=== PATIENT | female | born 1960 | race Caucasian/White ===

== ENCOUNTER → 2019-01-21 | Outpatient (CLI) | payer OTHER ==
[~2019-01-21] MED LIST: ALBU90OI; BENADRYL; BENADRYL OTC; PRED20 PO; THYROID
== END | disposition home or self-care (01) ==
LOC: LAB 15:46 → LAB SHORT 15:46
DX: N39.0 Urinary tract infection, site not specified (principal)
CPT/HCPCS: 87077; 87086; 87186

== ENCOUNTER 2020-07-29 17:46 | Emergency (ER) | payer OTHER ==
[~2020-07-29] VITALS: Ht 165.1 cm; Wt 90.7 kg
[2020-07-29] MEDS ORDERED: SYNTHROID137 MCG PO (18:40)
[2020-07-29] MEDS ORDERED: LISI20 PO (18:40)
[2020-07-29 19:04] LABS: BASOPHILS ABSOLUTE AUTO 0.07 K/mm3 (0.00-0.23); BASOPHILS PERCENT AUTO 1 % (0-2); EOSINOPHILS ABSOLUTE AUTO 0.27 K/mm3 (0.00-0.68); EOSINOPHILS PERCENT AUTO 3 % (0-6); Hemoglobin 12.8 g/dL (11.5-16.0); IMMATURE GRAN ABSOLUTE AUTO 0.04 K/mm3 (0.00-0.10); IMMATURE GRAN PERCENT AUTO 1 % (0-1); LYMPHOCYTES ABSOLUTE AUTO 1.14 K/mm3 (0.84-5.20); LYMPHOCYTES PERCENT AUTO 13 % (21-46); MONOCYTES ABSOLUTE AUTO 0.55 K/mm3 (0.16-1.47); MONOCYTES PERCENT AUTO 6 % (4-13); Mean Corpuscular HGB 28.4 pg (26.0-34.0); Mean Corpuscular Volume 89 fL (80-100); Mean Platelet Volume 9.4 fL (9.1-12.4); NEUTROPHILS ABSOLUTE AUTO 6.49 K/mm3 (1.96-9.15); NEUTROPHILS PERCENT AUTO 76 % (41-73); Platelet Count 237 K/mm3 (150-400); RDW Coefficient Variation 13.2 % (11.7-14.2); RDW Standard Deviation 43.2 fL (35.1-46.3); Red Blood Cell Count 4.51 M/mm3 (3.80-5.20); White Blood Cell Count 8.56 K/mm3 (4.00-11.30)
[2020-07-29 19:28] LABS: Alanine Aminotransfer (ALT/SGP 18 U/L (12-78); Albumin, Blood 3.6 g/dL (3.4-5.0); Albumin/Globulin Ratio 0.9 (0.8-1.8); Alk Phos 108 U/L (50-136); Anion Gap 7 mmol/L (6-16); Aspartate Aminotrans (AST/SGOT 21 U/L (12-37); Bilirubin, Total 0.4 mg/dL (0.1-1.0); Blood Urea Nitrogen 20 mg/dL (8-24); Bun/Creatinine Ratio 18.5 (12.0-20.0); CO2, Blood 25 mmol/L (21-32); Calcium, Blood 9.1 mg/dL (8.5-10.1); Chloride, Blood 107 mmol/L (98-108); Creatinine, Blood 1.08 mg/dL (0.40-1.00); Globulin, Blood 3.8 g/dL (2.2-4.0); Glomerular Filtration Rate 55 (60-); Glucose, Blood 99 mg/dL (70-99); Potassium, Blood 3.6 mmol/L (3.5-5.5); Sodium, Blood 139 mmol/L (136-145); Total Protein, Blood 7.4 g/dL (6.4-8.2); Troponin I <0.015 ng/mL (0.000-0.040)
== END 2020-07-29 20:40 | disposition home or self-care (01) ==
LOC: ER 17:46
PROVIDERS: Emergency Medicine
DX: R07.9 Chest pain, unspecified (principal); I10 Essential (primary) hypertension; Z79.52 Long term (current) use of systemic steroids; Z79.899 Other long term (current) drug therapy
CPT/HCPCS: 71046; 80053; 83690; 84484; 85025; 93005; 93010; 99284-25

== ENCOUNTER 2021-01-14 13:28 | Day surgery (SDC) | payer OTHER ==
[~2021-01-14] VITALS: Ht 165.1 cm; Wt 98.6 kg
[~2021-01-14 13:28] MED LIST changes: +CLOB.05TO; +DICL75ER PO; +EPIPEN 2-P0.3 MG/0.1; +EUTHYROX125 MCG PO; +LISI20 PO; +OMEP20ER PO; +SYNTHROID137 MCG PO
== END 2021-01-14 15:11 | disposition home or self-care (01) ==
LOC: ORSCSDS 13:28
PROVIDERS: Internal Medicine Gastroenterology
PROC: 0DB58ZX Excision of Esophagus, Via Natural or Artificial Opening Endoscopic, Diagnostic (ICD-10-PCS; principal; 2021-01-14 14:30)
PROC: 0D758ZZ Dilation of Esophagus, Via Natural or Artificial Opening Endoscopic (ICD-10-PCS; principal; 2021-01-14 14:30)
DX: R13.10 Dysphagia, unspecified (principal); I10 Essential (primary) hypertension; K22.2 Esophageal obstruction; K44.9 Diaphragmatic hernia without obstruction or gangrene; K20.80 Other esophagitis without bleeding; Z68.36 Body mass index [BMI] 36.0-36.9, adult; E66.9 Obesity, unspecified; Z79.899 Other long term (current) drug therapy
CPT/HCPCS: 88305; C1726; J2704; J7120

== ENCOUNTER → 2022-05-29 | Outpatient (CLI) | payer OTHER | END | disposition home or self-care (01) | LOC: LAB SHORT 11:06 → LAB 11:06 | DX: C57.4 Malignant neoplasm of uterine adnexa, unspecified (principal); D22.5 Melanocytic nevi of trunk | CPT/HCPCS: 88305 ==

== ENCOUNTER → 2022-06-30 | Outpatient (CLI) | payer OTHER | LOC: LAB SHORT 07:40 → PLD 07:40 | DX: D22.5 Melanocytic nevi of trunk (principal) | CPT/HCPCS: 88305 ==

== ENCOUNTER 2022-07-03 15:12 | Emergency (ER) | payer OTHER ==
[~2022-07-03] VITALS: Ht 165.1 cm; Wt 95.2 kg
[2022-07-03 15:38] LABS: BASOPHILS ABSOLUTE AUTO 0.09 K/mm3 (0.00-0.23); BASOPHILS PERCENT AUTO 1 % (0-2); EOSINOPHILS ABSOLUTE AUTO 0.25 K/mm3 (0.00-0.68); EOSINOPHILS PERCENT AUTO 3 % (0-6); Hematocrit 41.7 % (33.0-51.0); IMMATURE GRAN ABSOLUTE AUTO 0.02 K/mm3 (0.00-0.10); IMMATURE GRAN PERCENT AUTO 0 % (0-1); LYMPHOCYTES ABSOLUTE AUTO 1.84 K/mm3 (0.84-5.20); LYMPHOCYTES PERCENT AUTO 22 % (21-46); MONOCYTES ABSOLUTE AUTO 0.61 K/mm3 (0.16-1.47); MONOCYTES PERCENT AUTO 7 % (4-13); Mean Corpuscular HGB 28.8 pg (26.0-34.0); Mean Corpuscular HGB Conc 33.6 g/dL (31.5-36.5); Mean Corpuscular Volume 86 fL (80-100); Mean Platelet Volume 9.5 fL (9.1-12.4); NEUTROPHILS ABSOLUTE AUTO 5.76 K/mm3 (1.96-9.15); NEUTROPHILS PERCENT AUTO 67 % (41-73); Platelet Count 275 K/mm3 (150-400); RDW Coefficient Variation 13.2 % (11.7-14.2); RDW Standard Deviation 41.5 fL (35.1-46.3); Red Blood Cell Count 4.86 M/mm3 (3.80-5.20); White Blood Cell Count 8.57 K/mm3 (4.00-11.30)
[2022-07-03 15:58] LABS: Albumin, Blood 3.6 g/dL (3.4-5.0); Albumin/Globulin Ratio 0.9 (0.8-1.8); Bilirubin, Total 0.4 mg/dL (0.1-1.0); Bun/Creatinine Ratio 20.4 (12.0-20.0); Calcium, Blood 8.9 mg/dL (8.5-10.1); Creatinine, Blood 0.93 mg/dL (0.40-1.00); Globulin, Blood 3.8 g/dL (2.2-4.0); Total Protein, Blood 7.4 g/dL (6.4-8.2)
[2022-07-03 23:32] LABS: Free Thyroxine 1.32 ng/dL (0.70-1.60); Thyroid Stimulating Hormone 0.472 uIU/mL (0.360-4.800); Triiodothyronine, Free 2.8 pg/mL (2.18-3.98)
== END 2022-07-04 00:31 | disposition home or self-care (01) ==
LOC: ER 15:12
PROVIDERS: Physician Assistant; Student in an Organized Health Care Education/Training Program
DX: R07.89 Other chest pain (principal); R53.83 Other fatigue; I10 Essential (primary) hypertension; Z88.8 Allergy status to other drugs, medicaments and biological substances; Z88.5 Allergy status to narcotic agent; Z91.013 Allergy to seafood; Z79.899 Other long term (current) drug therapy
CPT/HCPCS: 36415; 71045; 80053; 83880; 84439; 84443; 84481; 84484; 85025; 93005; 93010; A9270

== ENCOUNTER → 2023-03-30 | Outpatient (CLI) | payer OTHER ==
[~2023-03-30] MED LIST changes: +ALBU2.5V5; +CLOBETASOL EMOL15 G1; +Lisinopril2.5 MG; +OMEP20ER
[2023-03-30 14:45] LABS: Alanine Aminotransfer (ALT/SGP 29 U/L (12-78); Albumin, Blood 3.6 g/dL (3.4-5.0); Alk Phos 105 U/L (50-136); Anion Gap 6 mmol/L (6-16); Aspartate Aminotrans (AST/SGOT 20 U/L (12-37); Bilirubin, Total 0.5 mg/dL (0.1-1.0); Blood Urea Nitrogen 17 mg/dL (8-24); Bun/Creatinine Ratio 16.7 (12.0-20.0); CHOL/HDL RATIO 3.6; CO2, Blood 26 mmol/L (21-32); Calcium, Blood 9.1 mg/dL (8.5-10.1); Chloride, Blood 109 mmol/L (98-108); Cholesterol 201 mg/dL (50-200); Creatinine, Blood 1.02 mg/dL (0.40-1.00); Globulin, Blood 3.5 g/dL (2.2-4.0); Glomerular Filtration Rate 62 (60-); Glucose, Blood 108 mg/dL (70-99); HDL Cholesterol 56 mg/dL (>39); LDL/HDL RATIO 2.1; Low Density Lipoprotein Chol 119 mg/dL (0-110); Potassium, Blood 4.7 mmol/L (3.5-5.5); Sodium, Blood 141 mmol/L (136-145); Total Protein, Blood 7.1 g/dL (6.4-8.2); Triglycerides 132 mg/dL (30-160); Very Low Density Lipoprot Chol 26 mg/dL (6-32)
== END ==
LOC: LAB 09:05 → LAB SHORT 09:05
PROVIDERS: Physician Assistant
DX: Z00.00 Encounter for general adult medical examination without abnormal findings (principal); Z11.59 Encounter for screening for other viral diseases
CPT/HCPCS: 80053; 80061; 84443; 86803

== ENCOUNTER → 2023-05-27 | Outpatient (CLI) | payer OTHER | END | disposition home or self-care (01) | LOC: LAB 09:30 → LAB SHORT 09:30 | DX: N39.0 Urinary tract infection, site not specified (principal) | CPT/HCPCS: 87086 ==

== ENCOUNTER 2024-02-12 09:27 | Day surgery (SDC) | payer OTHER ==
[~2024-02-12] VITALS: Ht 167.6 cm; Wt 88.9 kg
[~2024-02-12 09:27] MED LIST changes: +Lactated Ringer's 1,000 ML IV ONE; +Ropivacaine 0.5% HCl/Pf 5 MG/ML 20ML VIAL ONE
[2024-02-12] MEDS ORDERED: CeFAZolin Sodium 2,000 MG VIAL ONE (10:14)
[2024-02-12] MEDS ORDERED: NS 50 ML IV ONE (10:15)
[2024-02-12] MEDS ORDERED: Lactated Ringer's 1,000 ML IV ONE (10:15)
--- NOTE | 2024-02-12 10:23 | NUR ---
02/12/24 Lito3 Meg Chew PRP DRAWN PER ORDERS AND PLACED IN CENTRIFUGE
[2024-02-12] MEDS ORDERED: FentaNYL Citrate 50 MCG/ML 2 ML Injection ONE ×2 (10:28→12:10)
[2024-02-12] MEDS ORDERED: propofoL 20 ML IV ONE (10:28)
[2024-02-12] MEDS ORDERED: Dexamethasone Sod Phos 10 MG/ML 1ML VIAL ONE (10:39)
[2024-02-12] MEDS ORDERED: Glycopyrrolate 0.2 MG/ML 5ML VIAL ONE (11:01)
[2024-02-12] MEDS ORDERED: Ondansetron HCl 2 MG / ML 2ML Vial ONE ×2 (11:22→12:11)
[2024-02-12] MEDS ORDERED: Scopolamine Hydrobromide Patch ONE (12:21)
[2024-02-12] MEDS ORDERED: HYDROmorphone HCl/Pf 1MG SYR ONE (13:29)
--- NOTE | 2024-02-12 13:47 | NUR ---
02/12/24 1347 NII CAVAZOS DILAUID 1MG IV IN INCREMENTAL DOSES FOR THIGH PAIN
[2024-02-12 14:40] VITALS: BP 108/67
[2024-02-12] MEDS ORDERED: OxyCODONE HCL 5 MG TAB ONE (15:13)
== END 2024-02-12 15:56 | disposition home or self-care (01) ==
LOC: ORSCSDS 09:27
PROVIDERS: Orthopaedic Surgery
PROC: 0LMJ0ZZ Reattachment of Right Hip Tendon, Open Approach (ICD-10-PCS; principal; 2024-02-12 11:00)
DX: S76.311A Strain of muscle, fascia and tendon of the posterior muscle group at thigh level, right thigh, initial encounter (principal); M71.9 Bursopathy, unspecified; I10 Essential (primary) hypertension; K21.9 Gastro-esophageal reflux disease without esophagitis; E03.9 Hypothyroidism, unspecified; E66.9 Obesity, unspecified; Z68.32 Body mass index [BMI] 32.0-32.9, adult; Z79.899 Other long term (current) drug therapy
CPT/HCPCS: 73501; A9270; C1713; J0690; J1100; J1170; J2405; J2704; J2795; J3010; J7120

== ENCOUNTER 2024-04-19 09:43 | Day surgery (SDC) | payer OTHER ==
[~2024-04-19] VITALS: Ht 165.1 cm; Wt 89.3 kg
[~2024-04-19 09:43] MED LIST changes: +Bupivacaine 0.5% HCl 5 MG/ML 30MLVIAL ONE; +Dexamethasone Sod Phos 10 MG/ML 1ML VIAL ONE; +FentaNYL Citrate 50 MCG/ML 2 ML Injection ONE; -Lactated Ringer's 1,000 ML IV ONE; +Midazolam HCl 1MG / ML 2ML Vial ONE; +Ondansetron HCl 2 MG / ML 2ML Vial ONE; -Ropivacaine 0.5% HCl/Pf 5 MG/ML 20ML VIAL ONE
[2024-04-19] MEDS ORDERED: Tranexamic Acid 100 ML IV ONE (09:53)
[2024-04-19] MEDS ORDERED: NS 50 ML IV ONE (09:54)
[2024-04-19] MEDS ORDERED: CeFAZolin Sodium 2,000 MG VIAL ONE (09:54)
[2024-04-19] MEDS ORDERED: Lactated Ringer's 1,000 ML IV ONE ×2 (09:54→10:20)
[2024-04-19] MEDS ORDERED: propofoL 40 ML IV ONE ×2 (09:55→12:25)
[2024-04-19] MEDS ORDERED: LISI20 (10:14)
[2024-04-19] MEDS ORDERED: Scopolamine Hydrobromide Patch ONE (10:41)
[2024-04-19] MEDS ORDERED: EPINEPhrine HCl 1 MG/ML 1ML Amp XX ONE ×2 (11:12→11:42)
[2024-04-19] MEDS ORDERED: Lidocaine 1%-Epineph 1:100000 20 ML MDV INJ ONE ×2 (11:12→11:42)
[2024-04-19] MEDS ORDERED: Phenylephrine HCl 100 MCG/ML-NS 10MLSYR (1MG/10ML) ONE (11:15)
[2024-04-19] MEDS ORDERED: Rocuronium Bromide 10 MG/ML 5ML Injection IV ONE (11:15)
--- NOTE | 2024-04-19 11:52 | NUR ---
04/19/24 1152 Nadine Jimenez NOTED SCABED OVER SCRATCH TO PT LEFT FOREARM, SURGEON AWARE, OK TO PROCEED
[2024-04-19] MEDS ORDERED: Sugammadex Sodium 200 MG/2ML SDV (100 MG/ML) ONE (12:34)
[2024-04-19] MEDS ORDERED: FentaNYL Citrate 50 MCG/ML 2 ML Injection ONE (14:06)
[2024-04-19 15:07] VITALS: BP 119/70
--- NOTE | 2024-04-19 15:11 | NUR ---
04/19/24 1511 Jenna Narvaez PT DENIED ANY NAUSEA, PAIN LEVEL WAS AT A 4/10 FOR DISCOMFORT TO L SHOULDER AND R HIP. PT TOLERATED SNACKS AND FLUIDS. PT C/O BEING COLD. WARM BLANKETS PROVIDED TO PT. PT CALM, COOPERATIVE, AND TALKATIVE. PT STATED THAT THIS PROCEDURE WENT A LOT SMOOTHLY THAN HER PREVIOUS PROCEDURE TO HER R HIP ABOUT 10 WEEKS AGO HERE AT THE [facility]. PT EDUCATION PROVIDED TO PT AND HER AT SIDE OF RECLINER. PT ABLE TO MAKE NEEDS KNOWN. QUESTIONS ANSWERED AND CONCERNS ADDRESSED. EDUCATION REGARDING THE POLAR PACK GIVEN TO PT AND ON HOW TO PUT THE SLING ON AND OFF. PT'S WILL TREE PRUNER RX FROM THEIR PERFERRED PHARMACY, PT RECEIVED A HARD SCRIP FOR OXY 5MG PO. VSS, PT FINALLY WARM AFTER GETTING DRESSED. PT ABLE TO URINATE BEFORE LEAVING FACILITY. PT ASSISTED TO HER PRIVATE VEHICLE SAFELY.
== END 2024-04-19 13:22 | disposition home or self-care (01) ==
LOC: ORSCSDS 09:43
PROVIDERS: Orthopaedic Surgery Sports Medicine
PROC: 0RNK4ZZ Release Left Shoulder Joint, Percutaneous Endoscopic Approach (ICD-10-PCS; principal; 2024-04-19 11:00)
DX: M75.102 Unspecified rotator cuff tear or rupture of left shoulder, not specified as traumatic (principal); M25.512 Pain in left shoulder; I10 Essential (primary) hypertension; K21.9 Gastro-esophageal reflux disease without esophagitis; E03.9 Hypothyroidism, unspecified; J45.909 Unspecified asthma, uncomplicated; Z79.899 Other long term (current) drug therapy; E66.9 Obesity, unspecified; Z68.32 Body mass index [BMI] 32.0-32.9, adult
CPT/HCPCS: A9270; C1713; J0171; J0690; J1100; J2250; J2371; J2405; J2704; J3010; J7120

== ENCOUNTER 2024-09-13 09:43 | Day surgery (SDC) | payer OTHER ==
[~2024-09-13] VITALS: Ht 167.6 cm; Wt 91.2 kg
[~2024-09-13 09:43] MED LIST changes: -Bupivacaine 0.5% HCl 5 MG/ML 30MLVIAL ONE; +Dexmedetomidine HCL 200 MCG / 2 ML ONE; +EPINEPhrine HCl 1 MG/ML 1ML Amp ONE; -FentaNYL Citrate 50 MCG/ML 2 ML Injection ONE; +Ketorolac Tromethamine 30mg Vial ONE; +LISI20; +Lidocaine HCl 4% 5 ML SDA ONE; -Midazolam HCl 1MG / ML 2ML Vial ONE; +Ropivacaine 0.5% HCL/PF 5 MG/ML 30ML Vial ONE; +propofoL 150 ML IV ONE
[2024-09-13] MEDS ORDERED: FentaNYL Citrate 50 MCG/ML 2 ML Injection ONE ×2 (09:47→13:06)
[2024-09-13] MEDS ORDERED: Lactated Ringer's 1,000 ML IV ONE ×5 (10:15→14:41)
[2024-09-13] MEDS ORDERED: Tranexamic Acid 100 ML IV ONE (10:20)
[2024-09-13] MEDS ORDERED: Acetaminophen 500 MG Tab ONE (10:21)
[2024-09-13] MEDS ORDERED: CeFAZolin Sodium 2,000 MG VIAL ONE (10:22)
[2024-09-13] MEDS ORDERED: Scopolamine Hydrobromide Patch ONE (10:22)
--- NOTE | 2024-09-13 10:41 | NUR ---
09/13/24 1041 BRAXTON ESCOBEDO BEDSIDE TIMEOUT FOR NERVE BLOCK PROCEDURE WITH PT, PT DAUGHTER, ANESTHESIA, AND THIS RN COMPLETED AT 1030. SPO2 MONITORED T/O PROCEDURE, SATS MAINTAINED SNL ON RA. NERVE BLOCK COMPLETED WITHOUT COMPLICATIONS.
[2024-09-13] MEDS ORDERED: DiphenhydrAMINE HCl 50 MG/ML 1ML Vial ONE (11:06)
[2024-09-13] MEDS ORDERED: Metoclopramide HCl 5MG / ML 2ML Vial ONE (11:08)
[2024-09-13] MEDS ORDERED: Sugammadex Sodium 200 MG/2ML SDV (100 MG/ML) ONE (11:31)
[2024-09-13] MEDS ORDERED: Vasopressin 20 UNITS/ML 1ML Vial ONE (12:19)
[2024-09-13] MEDS ORDERED: Ondansetron HCl 2 MG / ML 2ML Vial ONE (13:11)
--- NOTE | 2024-09-13 13:25 | NUR ---
09/13/24 Drake5 Jenna Narvaez PT'S BP WAS DIPPING DOWN IN THE 87/50, MAP WNL, WILL LET DR. ISRAEL KNOW ABOUT LOW BLOOD PRESSURE. PT STATED THAT SHE WAS FEELING NAUSEAT, AND COLD, WARM BLANKETS PROVIDED TO PT. WCTM.
[2024-09-13] MEDS ORDERED: OxyCODONE HCL 5 MG TAB ONE (14:26)
[2024-09-13 14:40] VITALS: BP 102/58
--- NOTE | 2024-09-13 14:56 | NUR ---
09/13/24 5968 URVASHI PATEL PT DOING WELL AT DISCHARGE. DTR WAS IN ROOM WHEN CLOTHING WAS PLACED ON AND SHE ADMITS THAT SHE UNDERSTANDS HOW TO DON/DOFF CLOTHING AND IMMOBILIZER. PT WAS ABLE TO STAND TO TRANSFER FROM WC TO CAR WO DIFF. WITH MINIMAL ASSIST. BOTH PT AND DTR IN FOR DC INSTRUCTIONS. PT DTR HAD PT PURSE.
== END 2024-09-13 14:54 | disposition home or self-care (01) ==
LOC: ORSCSDS 09:43
PROVIDERS: Orthopaedic Surgery Sports Medicine
PROC: 0LM14ZZ Reattachment of Right Shoulder Tendon, Percutaneous Endoscopic Approach (ICD-10-PCS; principal; 2024-09-13 12:00)
PROC: 0RNJ4ZZ Release Right Shoulder Joint, Percutaneous Endoscopic Approach (ICD-10-PCS; principal; 2024-09-13 12:00)
DX: M75.121 Complete rotator cuff tear or rupture of right shoulder, not specified as traumatic (principal); I10 Essential (primary) hypertension; K21.9 Gastro-esophageal reflux disease without esophagitis; E03.9 Hypothyroidism, unspecified; E66.9 Obesity, unspecified; Z68.32 Body mass index [BMI] 32.0-32.9, adult; Z79.899 Other long term (current) drug therapy
CPT/HCPCS: A9270; C1713; J0171; J0690; J1100; J1200; J1885; J2003; J2405; J2704; J2765; J2795; J3010; J7120

== ENCOUNTER → 2025-06-25 | Outpatient (CLI) | payer OTHER ==
[~2025-06-25] MED LIST changes: -Dexamethasone Sod Phos 10 MG/ML 1ML VIAL ONE; -Dexmedetomidine HCL 200 MCG / 2 ML ONE; -EPINEPhrine HCl 1 MG/ML 1ML Amp ONE; -Ketorolac Tromethamine 30mg Vial ONE; -Lidocaine HCl 4% 5 ML SDA ONE; +NITR100CA PO; -Ondansetron HCl 2 MG / ML 2ML Vial ONE; -Ropivacaine 0.5% HCL/PF 5 MG/ML 30ML Vial ONE; -propofoL 150 ML IV ONE
== END ==
LOC: LAB SHORT 17:40 → LAB 17:40
DX: N39.0 Urinary tract infection, site not specified (principal); R31.9 Hematuria, unspecified
CPT/HCPCS: 87077; 87086; 87186

== ENCOUNTER 2025-06-27 06:10 | Day surgery (SDC) | payer OTHER ==
[~2025-06-27] VITALS: Ht 165.1 cm; Wt 94.1 kg
[~2025-06-27 06:10] MED LIST changes: -NITR100CA PO
[2025-06-27] MEDS ORDERED: CeFAZolin Sodium 2,000 MG VIAL ONE (06:22)
[2025-06-27] MEDS ORDERED: NITR100CA PO (06:33)
[2025-06-27] MEDS ORDERED: Tranexamic Acid 100 ML IV ONE ×2 (06:51→10:49)
[2025-06-27] MEDS ORDERED: Midazolam HCl 1MG / ML 2ML Vial ONE (07:10)
[2025-06-27] MEDS ORDERED: FentaNYL Citrate 50 MCG/ML 2 ML Injection ONE ×2 (07:10→11:07)
--- NOTE | 2025-06-27 07:11 | NUR ---
06/27/25 0711 BRAXTON ESCOBEDO SPOUSE AT BEDSIDE
[2025-06-27 08:50] LABS: BODY FLUID RBC 0.005 M/mm3 (0-0)
[2025-06-27 08:59] LABS: RBC Count, Synovial Fluid 5000 /mm3 (0-0); WBC Count, Synovial Fluid 186 /mm3 (0-180)
[2025-06-27] MEDS ORDERED: Phenylephrine HCl 100 MCG/ML-NS 10MLSYR (1MG/10ML) ONE (09:20)
[2025-06-27 09:30] LABS: Appearance, Synovial Fluid Hazy (Clear); Color, Synovial Fluid Pale Yellow (None-P Yel)
[2025-06-27 09:39] LABS: Lymphs, Synovial Fluid 67 % (0-15); Monocytes/Macrophages, Synovia 15 % (0-65); Neutrophils, Synovial Fluid 18 % (0-24)
[2025-06-27] MEDS ORDERED: Bupivacaine 0.5% W/EPI 1:200000 SDV 30 ML Vial ONE (10:15)
[2025-06-27] MEDS ORDERED: Ketorolac Tromethamine 30mg Vial ONE (10:16)
[2025-06-27] MEDS ORDERED: Dexamethasone Sod Phos 10 MG/ML 1ML VIAL ONE (10:16)
[2025-06-27] MEDS ORDERED: Bupivacaine 0.5% HCl 5 MG/ML 30MLVIAL ONE (10:16)
[2025-06-27] MEDS ORDERED: Ondansetron HCl 2 MG / ML 2ML Vial ONE ×2 (10:16→11:16)
[2025-06-27] MEDS ORDERED: Sugammadex Sodium 200 MG/2ML SDV (100 MG/ML) ONE (10:17)
[2025-06-27] MEDS ORDERED: Metoclopramide HCl 5MG / ML 2ML Vial ONE (12:19)
[2025-06-27 13:27] VITALS: BP 101/82
== END 2025-06-27 12:54 | disposition home or self-care (01) ==
LOC: ORSCSDS 06:10
PROVIDERS: Orthopaedic Surgery Sports Medicine
PROC: 0LM14ZZ Reattachment of Right Shoulder Tendon, Percutaneous Endoscopic Approach (ICD-10-PCS; principal; 2025-06-27 07:30)
PROC: 0LN70ZZ Release Right Hand Tendon, Open Approach (ICD-10-PCS; principal; 2025-06-27 07:30)
DX: M75.121 Complete rotator cuff tear or rupture of right shoulder, not specified as traumatic (principal); M75.21 Bicipital tendinitis, right shoulder; M65.341 Trigger finger, right ring finger; Z98.890 Other specified postprocedural states; K21.9 Gastro-esophageal reflux disease without esophagitis; Z79.899 Other long term (current) drug therapy
CPT/HCPCS: 87070; 87075; 87205; 89051; A9270; C1713; J0166; J0690; J1100; J1885; J2250; J2371; J2405; J2704; J2765; J3010; J7120; Q4125